=== PATIENT | female | born 1990 | race Caucasian/White ===

== ENCOUNTER 2020-12-18 16:38 | Outpatient (CLI) | payer OTHER, SELFPAY ==
[2020-12-18 17:02] VITALS: BP 147/93; PULSE 72
[2020-12-18 17:15] VITALS: BP 149/99; PULSE 76
[2020-12-18 17:25] LABS: Basophils Percent Auto 0.3 % (0.2-1.2); Eosinophils Absolute Auto 0.1 K/mm3 (0-0.3); Eosinophils Percent Auto 0.5 % (0-4.4); Hematocrit 31.7 % (37.0-47.0); Immature Granulocyte Absolute 0.06 K/mm3 (0.00-0.031); Immature Granulocyte Percent A 0.5 % (0-0.5); Lymphocytes Absolute Auto 2.09 K/mm3 (0.9-3.2); Lymphocytes Percent Auto 18.2 % (18.3-44.2); Mean Corpuscular HGB Conc 34.7 g/dl (32-36); Mean Corpuscular Hemoglobin 30.6 pg (26-34); Mean Corpuscular Volume 88.3 fl (80-100); Mean Platelet Volume 10.4 fl (7.4-10.4); Monocytes Absolute Auto 0.8 K/mm3 (0.1-0.6); Monocytes Percent Auto 6.6 % (2.6-8.5); Neutrophils Absolute Auto 8.5 K/mm3 (1.3-6.7); Neutrophils Percent Auto 73.9 % (45.5-73.1); Platelet Count Result 287 k/mm3 (150-375); Red Blood Count 3.59 M/mm3 (4.2-5.4); Red Cell Distribution Width 13.2 % (11.5-14.5); White Blood Count 11.5 K/mm3 (4.5-10.0)
[2020-12-18 17:26] LABS: Alanine Aminotransferase 18 U/L (4-35); Albumin Level 3.7 g/dL (3.5-5.1); Alkaline Phosphatase 173 U/L (38-126); Anion Gap 6 mmol/L (8-16); Aspartate Amino Transferase 25 U/L (14-36); Bilirubin,Total 0.3 mg/dL (0.2-1.3); Blood Urea Nitrogen 7 mg/dL (7-17); Calcium 9.8 mg/dL (8.4-10.2); Carbon Dioxide 22 mmol/L (22-30); Chloride 104 mmol/L (98-107); Estimated Glomerular Filt Rate > 60; Glucose 77 mg/dL (65-110); Potassium 3.4 mmol/L (3.4-5.0); Sodium 132 mmol/L (137-145); Uric Acid 4.6 mg/dL (2.5-7.5)
[2020-12-18 17:30] VITALS: BP 146/92; PULSE 67
[2020-12-18 17:30] LABS: Add Urine Microscopic? YES; Appearance Urine Cloudy (Clear); Bacteria Urine Trace /hpf; Bilirubin Urine Negative (Negative); Blood Urine Negative (Negative); Color Urine Yellow (Yellow); Glucose Urine UA Negative (Negative); Ketones Urine Negative (Negative); Leukocyte Esterase Ur Negative LEU/UL (NEGATIVE); Mucus Urine Rare /lpf; Nitrate Urine Negative (Negative); Protein Urine Negative (Negative); RBC Urine 0-2 /hpf (0-2); Squamous Epithelial Cell Urine Occasional /hpf (Few); Urobilinogen Urine Negative mg/dL (<2.0)
[2020-12-18 17:34] LABS: Total Protein Urine Random 19 mg/dL; Ur Ttl Prot Creatinine Ratio 0.33 mg/mg (0-0.20)
[2020-12-18 17:45] VITALS: BP 146/89; PULSE 73
[2020-12-18 17:48] VITALS: BP 146/89; PULSE 67
== END 2020-12-18 17:50 | disposition home or self-care (01) ==
LOC: ANHOBOP 16:44 → ANHOBPP 16:45
PROVIDERS: Visit Provider Obstetrics & Gynecology
DX: O13.9 Gestational [pregnancy-induced] hypertension without significant proteinuria, unspecified trimester (principal); Z3A.00 Weeks of gestation of pregnancy not specified
CPT/HCPCS: 36415; 59025; 80053; 81001; 82570; 84156; 84550; 85025; 87086; 99199

== ENCOUNTER 2020-12-30 14:05 | Inpatient (IN) | payer OTHER, SELFPAY ==
[2020-12-30] VITALS (48 sets, daily range): BP systolic 112–162; BP diastolic 62–126; PULSE 60–99; TEMP 36.4–36.7; O2SAT 98–100; BMI 27.8
--- NOTE | 2020-12-30 14:05 | LDADM ---
This patient, Marcy Rivera, was admitted to Labor/Delivery/Recovery 105 on 12/30/20 at 14:05. Plans for labor, pain management and were discussed with patient. Patient/family oriented to hospital policies and general routines including ID bracelet, bed and alarms, visiting hours, pain management, procedures, bathroom and other care routines, personal items, smoking policy, room service/diet and guest tray routines, infant security routines, and visiting hours. Patient/Family are encouraged to report perceived risks to care and to ask questions if they do not understand what they are told or what they should do. See OBIX for further documentation.
--- NOTE | 2020-12-30 14:25 | PC.NURSE ---
Notified Dr. Bejarano of patient arrival to OB unit with complaint of leaking clear fluid since 12/30/2020 0430. ROM plus was collected and positive for ROM. SVE 3-/-2. FHT reactive. Patient denies contractions. Admission order received.
--- NOTE | 2020-12-30 14:37 | PC.NURSE ---
Dr. Bejarano notified of elevated BP's upon admission. Orders received.
[2020-12-30 15:11] LABS: Basophils Absolute Auto 0.1 K/mm3 (0.0-0.1); Basophils Percent Auto 0.4 % (0.2-1.2); Eosinophils Absolute Auto 0.1 K/mm3 (0-0.3); Eosinophils Percent Auto 0.5 % (0-4.4); Hematocrit 36.8 % (37.0-47.0); Hemoglobin 12.5 g/dL (12.0-15.0); Immature Granulocyte Absolute 0.06 K/mm3 (0.00-0.031); Immature Granulocyte Percent A 0.5 % (0-0.5); Lymphocytes Absolute Auto 1.86 K/mm3 (0.9-3.2); Lymphocytes Percent Auto 14.4 % (18.3-44.2); Mean Corpuscular Hemoglobin 30.6 pg (26-34); Mean Corpuscular Volume 90.2 fl (80-100); Mean Platelet Volume 10.6 fl (7.4-10.4); Monocytes Absolute Auto 0.7 K/mm3 (0.1-0.6); Neutrophils Absolute Auto 10.3 K/mm3 (1.3-6.7); Neutrophils Percent Auto 79.2 % (45.5-73.1); Platelet Count Result 285 k/mm3 (150-375); Red Blood Count 4.08 M/mm3 (4.2-5.4); Red Cell Distribution Width 13.5 % (11.5-14.5)
[2020-12-30] MEDS: LACTATED RINGERS 1,000 ML 125 ML IV CONT ×2 (15:11→16:23)
[2020-12-30] MEDS: OXYTOCIN 30 UNITS/NS 500 ML 30 UNITS/500 ML BAG 6 UNITS IV CONT (15:12)
[2020-12-30 15:25] LABS: Alanine Aminotransferase 20 U/L (4-35); Albumin Level 4.2 g/dL (3.5-5.1); Alkaline Phosphatase 207 U/L (38-126); Anion Gap 7 mmol/L (8-16); Aspartate Amino Transferase 27 U/L (14-36); Bilirubin,Total 0.5 mg/dL (0.2-1.3); Blood Urea Nitrogen 6 mg/dL (7-17); Carbon Dioxide 25 mmol/L (22-30); Chloride 105 mmol/L (98-107); Estimated Glomerular Filt Rate > 60; Glucose 80 mg/dL (65-110); Potassium 3.6 mmol/L (3.4-5.0); Sodium 137 mmol/L (137-145)
--- NOTE | 2020-12-30 16:28 | WPDANESEPP ---
Anes - Eval Pre Procedure Procedure: Labor Epidural Date/Time: 12/30/20 16:28 Surgeon: Dr Mora Preop Diagnosis: Labor Pain Pre Op Diagnosis: Leaking Patient Data Age: 30 Gender: F Height: 1.65 m Weight: 76 kg Last Vital Signs Temp 36.6 C 12/30/20 14:15 Pulse 81 12/30/20 16:25 BP 150/77 H 12/30/20 16:25 Pulse Ox 100 12/30/20 16:24 Allergies Allergy/AdvReac Type Severity Reaction Status Date / Time No Known Allergies Allergy Verified 12/30/20 15:26 Home Medications Medication Instructions Recorded Confirmed Type Vitamin 1 tablet PO DAILY 12/30/20 12/30/20 History Laboratory Tests 12/30/20 12/30/20 12/30/20 14:57 14:57 14:57 WBC 13.0 K/mm3 H K/mm3 (4.5-10.0) RBC 4.08 M/mm3 L M/mm3 (4.2-5.4) Hgb 12.5 g/dL g/dL (12.0-15.0) Hct 36.8 % L % (37.0-47.0) MCV 90.2 fl fl (80-100) MCH 30.6 pg pg (26-34) MCHC 34.0 g/dl g/dl (32-36) RDW 13.5 % % (11.5-14.5) Plt Count 285 k/mm3 k/mm3 (150-375) MPV 10.6 fl H fl (7.4-10.4) Immature Gran % (Auto) 0.5 % % (0-0.5) Neut % (Auto) 79.2 % H % (45.5-73.1) Lymph % (Auto) 14.4 % L % (18.3-44.2) [place] % (Auto) 5.0 % % (2.6-8.5) Eos % (Auto) 0.5 % % (0-4.4) Baso % (Auto) 0.4 % % (0.2-1.2) Lymph # (Auto) 1.86 K/mm3 K/mm3 (0.9-3.2) [place] # (Auto) 0.7 K/mm3 H K/mm3 (0.1-0.6) Eos # (Auto) 0.1 K/mm3 K/mm3 (0-0.3) Baso # (Auto) 0.1 K/mm3 K/mm3 (0.0-0.1) Abs Immat Gran (auto) 0.06 K/mm3 H K/mm3 (0.00-0.031) Absolute Neuts (auto) 10.3 K/mm3 H K/mm3 (1.3-6.7) Absolute Nucleated RBC 0.0 K/mm3 K/mm3 (0.0-0.012) Nucleated RBC % 0.0 % % (0.0-0.2) Sodium 137 mmol/L mmol/L (137-145) Potassium 3.6 mmol/L mmol/L (3.4-5.0) Chloride 105 mmol/L mmol/L (98-107) Carbon Dioxide 25 mmol/L mmol/L (22-30) Anion Gap 7 mmol/L L mmol/L (8-16) BUN 6 mg/dL L mg/dL (7-17) Creatinine 0.60 mg/dL L mg/dL (0.7-1.0) Estim Creat Clear Calc Not Reportable Estimated GFR > 60 (59 - ) Glucose 80 mg/dL mg/dL (65-110) Calcium 10.0 mg/dL mg/dL (8.4-10.2) Total Bilirubin 0.5 mg/dL mg/dL (0.2-1.3) AST 27 U/L U/L (14-36) ALT 20 U/L U/L (4-35) Alkaline Phosphatase 207 U/L H U/L (38-126) Total Protein 8.0 g/dL g/dL (6.3-8.2) Albumin 4.2 g/dL g/dL (3.5-5.1) RPR Pending : gestational age ([place] 12/30/20) Patient hx anesthesia problems: none Family hx anesthesia problems: none PMFSH Family History Family History Grandparent Prostate carcinoma Diabetes mellitus Hypertension Mother Hypertension Emphysema lung Father Hypertension Social History Social History Smoking status: Former smoker Substance use: never Spiritual care concerns: No Exam Day of Procedure 12/30/20 16:28 Patient weight: normal Heart: regular rate and rhythm Lungs: normal air movement Airway: Mallampati scale class II Neurological: alert and oriented
--- NOTE | 2020-12-30 16:36 | PM.IMHP ---
H&P: HPI History of Present Illness Date/Time: 12/30/20 16:36 Chief Complaint: ruptured membrane at term Review of Systems Review of Systems: All systems reviewed & are unremarkable except as noted in HPI and below PMFSH Family History Family History Grandparent Prostate carcinoma Diabetes mellitus Hypertension Mother Hypertension Emphysema lung Father Hypertension Social History Social History Smoking status: Former smoker Substance use: never Spiritual care concerns: No Meds Home Medications and Allergies Home Medications Medication Instructions Recorded Confirmed Type Vitamin 1 tablet PO DAILY 12/30/20 12/30/20 History Allergies Allergy/AdvReac Type Severity Reaction Status Date / Time No Known Allergies Allergy Verified 12/30/20 15:26 Vital Signs Vital Signs - 24 hr 12/30/20 14:15 12/30/20 14:21 12/30/20 14:31 Temperature 97.9 F Pulse Rate 74 73 69 Blood Pressure 162/92 H 150/94 H 141/80 H Pulse Oximetry 12/30/20 14:46 12/30/20 15:01 12/30/20 15:31 Temperature Pulse Rate 76 66 60 Blood Pressure 148/85 H 138/85 149/83 H Pulse Oximetry 12/30/20 16:08 12/30/20 16:09 12/30/20 16:14 Temperature Pulse Rate 85 Blood Pressure 148/95 H Pulse Oximetry 100 99 12/30/20 16:17 12/30/20 16:19 12/30/20 16:20 Temperature Pulse Rate 80 89 Blood Pressure 155/85 H 160/86 H Pulse Oximetry 99 12/30/20 16:23 12/30/20 16:24 12/30/20 16:25 Temperature Pulse Rate 76 75 81 Blood Pressure 155/109 H 148/87 H 150/77 H Pulse Oximetry 100 12/30/20 16:28 12/30/20 16:29 12/30/20 16:30 Temperature Pulse Rate 84 65 Blood Pressure 149/82 H 153/73 H Pulse Oximetry 100 12/30/20 16:34 Temperature Pulse Rate 69 Blood Pressure 151/77 H Pulse Oximetry 100 Exam Const: General: no acute distress Eyes: General: appearance normal, both eyes and all related structures Neck: Neck: supple and no JVD Thyroid: thyroid normal Resp: Effort & Inspection: normal respiratory effort Auscultation: clear to auscultation bilaterally Cardio: Rate: regular rate Rhythm: regular rhythm GI: Inspection: non-distended GI Palp: Yes Soft to palpation, No Tenderness to palpation present (GI) and No Guarding due to palpation present (GI) Auscultation: normal bowel sounds : External Female Exam: normal external appearance Speculum Exam - Vagina: normal appearance of the vagina Speculum Exam - Cervix: normal appearance of the cervix (Cervix is 3.5 /80% per RN exam. FHTs reassuring) Skin: General skin exam: no rashes or lesions noted Extrem: General: normal to inspection and no edema Psych: Mental Status: mental status grossly normal Affect: normal affect H&P: Results Labs Labs: Short CBC 12/30/20 Range/Units 14:57 WBC 13.0 H (4.5-10.0) K/mm3 Hgb 12.5 (12.0-15.0) g/dL Hct 36.8 L (37.0-47.0) % Plt Count 285 (150-375) k/mm3 BMP 12/30/20 14:57 Sodium 137 Potassium 3.6 Chloride 105 Carbon Dioxide 25 BUN 6 L Creatinine 0.60 L Glucose 80 Calcium 10.0 Liver Function 12/30/20 Range/Units 14:57 Total Bilirubin 0.5 (0.2-1.3) mg/dL AST 27 (14-36) U/L ALT 20 (4-35) U/L Alkaline Phosphatase 207 H (38-126) U/L Albumin 4.2 (3.5-5.1) g/dL Assessment and Plan Additional Plan impression: Term in active labor plan Plan: Pit was initiated. Epidural is in and working. Spontaneous vaginal delivery is expected
[2020-12-30 17:21] LABS: Uric Acid 4.8 mg/dL (2.5-7.5)
[2020-12-30 17:28] LABS: Amphetamine Screen Urine Negative (Negative); Barbiturate Screen Urine Negative (Negative); Benzodiazepines Screen Urine Negative (Negative); Cannabinoid Screen Urine Positive (Negative); Cocaine Screen Urine Negative (Negative); Methadone Screen Urine Negative (Negative); Opiate Screen Urine Negative (Negative); Phencyclidine Screen Urine Negative (Negative)
[2020-12-30] MEDS: AMPICILLIN 2 GM/NS 100 ML 2 GM/100 ML BAG IVPB (22:31)
[2020-12-31] VITALS (9 sets, daily range): BP systolic 130–154; BP diastolic 58–92; PULSE 64–105; RESP 12–16; TEMP 36.2–36.7; O2SAT 98–100
--- NOTE | 2020-12-31 00:05 | PM.OBPRVD ---
OB - Delivery Note Procedure Delivery date: 12/30/20 events: Prolonged Rupture of Membrane Intrapartal events: None Induction method: none Delivery augmentation: pitocin Delivery monitor: external FHT Route of delivery: Episiotomy description: None Laceration Description: None Specimen: No Quantitative Blood Loss (ml): 58 Anesthesia type: Epidural Disposition: floor Baby Date of : 12/30/20 Time of : 23:53 Weeks of gestation at delivery: 40 Infant gender: Male Weight (pounds): 7 Weight (ounces): 12 presentation: vertex position: Right Occiput Anterior Placenta delivery description: Spontaneous cord vessel description: 3 Vessels and Clamped/Cut score one minute: 9 score five minutes: 9 Narrative: amp x 1 prolonged rom
[2020-12-31] MEDS: OXYTOCIN 30 UNITS/NS 500 ML 30 UNITS/500 ML BAG 125 UNITS IV CONT (00:25)
[2020-12-31] MEDS: IBUPROFEN 600 MG TABLET PO ×3 (00:26→17:19)
[2020-12-31] MEDS: MULTIVIT/MIN/PREN/FOL AC/IRON TABLET 1 TAB PO (07:34)
[2020-12-31] MEDS: DOCUSATE SODIUM 100 MG CAPSULE PO ×2 (07:35→17:19)
--- NOTE | 2020-12-31 08:09 | PM.OBPNVD ---
OB - PN: Subj Subjective Date/time seen: 12/31/20 08:09 Patient comments: no complaints and pain well controlled baby status: doing well and nursing well OB - PN: Obj Data Labs CBC & Chem 7: 12/30/20 14:57 12/30/20 14:57 Labs: Laboratory Results - last 24 hr 12/30/20 12/30/20 12/30/20 14:57 14:57 14:57 WBC 13.0 H RBC 4.08 L Hgb 12.5 Hct 36.8 L MCV 90.2 MCH 30.6 MCHC 34.0 RDW 13.5 Plt Count 285 MPV 10.6 H Immature Gran % (Auto) 0.5 Neut % (Auto) 79.2 H Lymph % (Auto) 14.4 L [place] % (Auto) 5.0 Eos % (Auto) 0.5 Baso % (Auto) 0.4 Lymph # (Auto) 1.86 [place] # (Auto) 0.7 H Eos # (Auto) 0.1 Baso # (Auto) 0.1 Abs Immat Gran (auto) 0.06 H Absolute Neuts (auto) 10.3 H Absolute Nucleated RBC 0.0 Nucleated RBC % 0.0 Sodium Potassium Chloride Carbon Dioxide Anion Gap BUN Creatinine Estim Creat Clear Calc Estimated GFR Glucose Uric Acid 4.8 Calcium Total Bilirubin AST ALT Alkaline Phosphatase Total Protein Albumin Urine Opiates Screen Urine Methadone Screen Ur Barbiturates Screen Ur Phencyclidine Scrn Ur Amphetamine Screen U Benzodiazepines Scrn Urine Cocaine Screen U Cannabinoids Screen Blood Type B Positive Antibody Screen Negative 12/30/20 12/30/20 14:57 16:37 WBC RBC Hgb Hct MCV MCH MCHC RDW Plt Count MPV Immature Gran % (Auto) Neut % (Auto) Lymph % (Auto) [place] % (Auto) Eos % (Auto) Baso % (Auto) Lymph # (Auto) [place] # (Auto) Eos # (Auto) Baso # (Auto) Abs Immat Gran (auto) Absolute Neuts (auto) Absolute Nucleated RBC Nucleated RBC % Sodium 137 Potassium 3.6 Chloride 105 Carbon Dioxide 25 Anion Gap 7 L BUN 6 L Creatinine 0.60 L Estim Creat Clear Calc Not Reportable Estimated GFR > 60 Glucose 80 Uric Acid Calcium 10.0 Total Bilirubin 0.5 AST 27 ALT 20 Alkaline Phosphatase 207 H Total Protein 8.0 Albumin 4.2 Urine Opiates Screen Negative Urine Methadone Screen Negative Ur Barbiturates Screen Negative Ur Phencyclidine Scrn Negative Ur Amphetamine Screen Negative U Benzodiazepines Scrn Negative Urine Cocaine Screen Negative U Cannabinoids Screen Positive A Blood Type Antibody Screen OB - PN A/P Plan day: 1 Plan: routine care Time Spent With Patient Time: Total time spent is greater than 50% in coordination of care (as documented) at patient's floor/unit and/or counseling patient: Time with patient: less than 15 minutes Review of Systems Review of Systems: All systems reviewed & are unremarkable except as noted in HPI and below Exam Const: General: no acute distress Eyes: General: appearance normal, both eyes and all related structures Neck: Neck: supple and no JVD Thyroid: thyroid normal Resp: Effort & Inspection: normal respiratory effort Auscultation: clear to auscultation bilaterally Cardio: Rate: regular rate Rhythm: regular rhythm GI: Inspection: non-distended GI Palp: Yes Soft to palpation, No Tenderness to palpation present (GI) and No Guarding due to palpation present (GI) Auscultation: normal bowel sounds : General: Yes bladder normal to palpation External Female Exam: normal external appearance Speculum Exam - Vagina: normal vaginal discharge and No vaginal bleeding Speculum Exam - Cervix: nontender Bimanual exam- vagina & uterus: bladder normal to palpation and No Cervical tenderness present OB/external & speculum: No vaginal bleeding Skin: General skin exam: no rashes or lesions noted Extrem: General: normal to inspection and no edema Psych: Mental Status: mental status grossly normal Affect: normal affect
--- NOTE | 2020-12-31 10:15 | PCCCNOTE ---
Care Coordination. Patient referred to Care Coordination for positive UDS for marijuana. Baby was not tested. Spoke with pt. and spouse at bedside. Mother reports occasionally uses and denies any substance addictions or resource information needed surrounding use. Pt. reports had big shower and has all necessary baby care items. She denies WIC or other resource information needs. Mother very interested in continuing to breast feed and RN aware. Spoke with Leah Gabriel at [facility] Hotline who took patient's situation as information only intake ID#[id number].
[2020-12-31] MEDS: DIBUCAINE 1% OINTMENT 30 GM TUBE 1 APPLIC TOPICAL (20:11)
[2021-01-01 00:01] VITALS: BP 129/89; PULSE 73; RESP 16; TEMP 37
[2021-01-01] MEDS: IBUPROFEN 600 MG TABLET PO ×2 (00:13→07:46)
--- NOTE | 2021-01-01 01:18 | PC.NURSE ---
01/01/2021 @ 2100 Patient viewed the discharge video Mother & Baby Care, The First Two Weeks . Patient was given the opportunity and encouraged to ask questions. Patient verbalized understanding of information shared and has been given the mother/baby guide for home reference.
[2021-01-01 05:00] VITALS: BP 147/88; PULSE 66; RESP 16; TEMP 36.4; O2SAT 98
[2021-01-01 05:26] LABS: Hematocrit 31.5 % (37.0-47.0); Hemoglobin 10.7 g/dL (12.0-15.0)
[2021-01-01] MEDS: DOCUSATE SODIUM 100 MG CAPSULE PO (07:47)
[2021-01-01] MEDS: MULTIVIT/MIN/PREN/FOL AC/IRON TABLET 1 TAB PO (07:47)
--- NOTE | 2021-01-01 08:00 | PC.NURSE ---
Mother called out for assist with feeding, reporting tenderness with feeding more on right than left. . is able to freely thrust tongue past gum ridge and flange both lips. Skin is intact on both nipples, redness and slight bruising noted more on right than left. Reviewed infant feeding cues, frequencies, duration of feedings, feeding elimination flow sheet, and signs of adequate intake. Demonstrated stimulation techniques to wake for feeding. Assisted with to breast. Reviewed positioning/alignment in football, holding breast in ?C? hold and guided asymmetrical latch on. Discussed rational for each. Mother reports she has not been holding breast during entire feeding. able to latch correctly within a few attempts. Reviewed signs of a correct latch, effective nursing and suck swallow ratio. Infant nursed eagerly, with steady draws and frequent swallowing noted. Reviewed the difference of effective vs ineffective nursing. Suggested mother stimulate while feeding to increase stimulation, increase intake and to assist with maintaining deep latch. would slip to shallow latch, mother reports tenderness. Demonstrated how to adjust latch more deeply while feeding. Mother reports she can feel change in latch and has no tenderness. Nipple care reviewed of lanolin after feedings, warm compresses as needed. Mother is planning discharge today. Mother is able to independently latch infant with appropriate positioning/alignment. She is feeding as required and waking infant to feed if needed. Infant has had at least 8 effective feedings in the past 24 hours, and is currently meeting outcomes for weight, output, jaundice and feeding frequencies. Mother states she feels confident to continue effective at home. Reviewed transition to breast milk, signs of adequate intake, and engorgement/relief. Instructed to call ICP if intake/output less than required. Reviewed regular medications mother is taking. Information provided per Camilla. Reviewed community resources on the [facility] website and in the Mom/Baby guide. Information on outpatient services provided. Mother has no further questions at this time.
[2021-01-01 08:30] VITALS: BP 138/91; PULSE 64; RESP 16; TEMP 36.4; O2SAT 96; BMI 25.4
--- NOTE | 2021-01-01 08:58 | PM.OBPNVD ---
OB - PN: Subj Subjective Date/time seen: 01/01/21 08:58 Narrative: Pain OK. Would like to go home. OB - PN: Obj Data Labs CBC & Chem 7: 01/01/21 05:11 12/30/20 14:57 Labs: Laboratory Results - last 24 hr 01/01/21 05:11 Hgb 10.7 L Hct 31.5 L OB - PN A/P Plan Comments: A: PPD#2, doing well. P: Home to f/u 6 weeks. Exam Psych: Other: AVSS ABD soft, nontender, fundus firm EXT nontender
--- NOTE | 2021-01-01 08:59 | P.DS_ITS ---
DS: Admitting Diagnosis Admitting Diagnosis IUP at 40 weeks SROM DS: Discharge Diagnosis Discharge Diagnosis (1) (normal spontaneous vaginal delivery): Code(s): O80 - Encounter for full-term uncomplicated delivery Status: Acute OB - DS: Summary OB Procedures : None OB Procedures Intrapartum: Spontaneous Vag Delivery OB Procedures: : None DS: Data Data Completed and Pending Labs on day of discharge: Labs from last 24 hours 01/01/21 05:11 Hgb 10.7 L Hct 31.5 L Discharge Plan Discharge Attending physician on discharge: Ramirez Mora Discharging Clinician: Ramirez Mora Patient Disposition: Home, Self-Care Activity: pelvic rest Diet: regular Discharge Instructions: Call or return if temperature above 100.4? F, increased abdominal pain, increased vaginal bleeding or any new problems. Patient Instructions: Antibiotic Form Stand Alone Forms: General Discharge Information Follow-up/Referrals: Ramirez Mora MD [Physician] - 6 Weeks Discharge Medications: New ibuprofen 600 mg tablet 600 mg PO Q6H PRN (Reason: cramps) Qty: 30 RF: 0 No Action Vitamin 1 tablet PO DAILY RF: 0 Date of admission: 12/30/20 14:05 Primary Care Provider: PHYSICIAN,FINAL ASSEMBLY WORKER Admitting Provider: Ramirez Mora Attending physician on admission: Ramirez Mora Condition: Stable
--- NOTE | 2021-01-01 12:44 | PC.NURSE ---
No AH follow-up scheduled since patient will be seeing fuel handler tomorrow (01/02/21) at 9:30 a.m. in [place], [place]. Per Dr. Mora, patient can call and stop in office sometime this week for a BP check.
[2021-01-04 09:19] LABS: Rapid Plasma Reagin Non-Reactive (NonReactive)
== END 2021-01-01 13:20 | disposition home or self-care (01) | DRG 807 ==
LOC: ANHLDR 14:39 → ANHOB2 12-31 02:33
PROVIDERS: Admitting Provider Obstetrics & Gynecology; Visit Provider Obstetrics & Gynecology
DX: O76 Abnormality in fetal heart rate and rhythm complicating labor and delivery (principal); Z37.0 Single live birth; O42.92 Full-term premature rupture of membranes, unspecified as to length of time between rupture and onset of labor; O13.4 Gestational [pregnancy-induced] hypertension without significant proteinuria, complicating childbirth; Z3A.40 40 weeks gestation of pregnancy
CPT/HCPCS: 36415; 80053; 80307; 84112; 84550; 85014; 85018; 85025; 86592; 86850; 86900; 86901; A9270; J0290; J2590; J2795; J7120

== ENCOUNTER 2023-04-29 16:32 | Outpatient (CLI) | payer OTHER, SELFPAY ==
[2023-04-29 17:00] VITALS: BP 152/103; PULSE 94
[2023-04-29 17:15] VITALS: BP 139/87; PULSE 117
[2023-04-29 17:18] LABS: Basophils Percent Auto 0.2 % (0.2-1.2); Eosinophils Absolute Auto 0.1 K/mm3 (0-0.3); Eosinophils Percent Auto 0.5 % (0-4.4); Hematocrit 33.1 % (37.0-47.0); Hemoglobin 10.9 g/dL (12.0-15.0); Immature Granulocyte Percent A 0.8 % (0-0.5); Lymphocytes Absolute Auto 2.22 K/mm3 (0.9-3.2); Lymphocytes Percent Auto 17.8 % (18.3-44.2); Mean Corpuscular HGB Conc 32.9 g/dl (32-36); Mean Corpuscular Hemoglobin 29.6 pg (26-34); Mean Corpuscular Volume 89.9 fl (80-100); Mean Platelet Volume 9.9 fl (7.4-10.4); Monocytes Absolute Auto 0.8 K/mm3 (0.1-0.6); Monocytes Percent Auto 6.2 % (2.6-8.5); Neutrophils Absolute Auto 9.3 K/mm3 (1.3-6.7); Neutrophils Percent Auto 74.5 % (45.5-73.1); Platelet Count Result 290 k/mm3 (150-375); Red Blood Count 3.68 M/mm3 (4.2-5.4); Red Cell Distribution Width 13.2 % (11.5-14.5); White Blood Count 12.5 K/mm3 (4.5-10.0)
[2023-04-29 17:19] LABS: Appearance Urine Clear (Clear); Bilirubin Urine Negative (Negative); Blood Urine Negative (Negative); Color Urine Yellow (Yellow); Glucose Urine UA Negative (Negative); Ketones Urine 1+ mg/dL (Negative); Leukocyte Esterase Ur Negative LEU/UL (NEGATIVE); Nitrate Urine Negative (Negative); Protein Urine Negative (Negative); Specific Grav Ur 1.002 (1.001-1.035); Urobilinogen Urine 0.2 mg/dL (<2.0); pH Urine 6.5 (5.0-9.0)
[2023-04-29 17:30] VITALS: BP 158/89; PULSE 116
[2023-04-29 17:30] LABS: Creatinine Urine 18.4 mg/dL; Total Protein Urine Random 14 mg/dL; Ur Ttl Prot Creatinine Ratio 0.76 mg/mg (0-0.20)
[2023-04-29 17:31] LABS: Alanine Aminotransferase 20 U/L (6-35); Albumin Level 3.8 g/dL (3.5-5.1); Alkaline Phosphatase 136 U/L (38-126); Anion Gap 9 mmol/L (8-16); Aspartate Amino Transferase 30 U/L (14-36); Bilirubin,Total 0.5 mg/dL (0.2-1.3); Blood Urea Nitrogen 8 mg/dL (7-17); Calcium 9.4 mg/dL (8.4-10.2); Carbon Dioxide 20 mmol/L (22-30); Chloride 105 mmol/L (98-107); Estimated Glomerular Filt Rate > 60; Glucose 76 mg/dL (65-110); Potassium 3.8 mmol/L (3.4-5.0); Sodium 134 mmol/L (137-145); Uric Acid 4.9 mg/dL (2.5-7.5)
[2023-04-29 17:38] LABS: Add Urine Microscopic? NO
[2023-04-29 17:45] VITALS: BP 147/86; PULSE 117
[2023-04-29 18:09] VITALS: BP 147/86; PULSE 90
== END 2023-04-29 18:46 | disposition home or self-care (01) ==
LOC: ANHOBOP 16:39 → ANHOBPP 16:42
PROVIDERS: Visit Provider Obstetrics & Gynecology
DX: O13.9 Gestational [pregnancy-induced] hypertension without significant proteinuria, unspecified trimester (principal); Z3A.00 Weeks of gestation of pregnancy not specified
CPT/HCPCS: 36415; 59025; 80053; 81003; 82570; 84156; 84550; 85025; 87086; 99199

== ENCOUNTER 2023-05-01 08:52 | Outpatient (NON) | payer OTHER, SELFPAY ==
[2023-05-01 09:16] VITALS: BMI 28.8
[2023-05-01 09:47] LABS: Collection Time Urine 24 HOURS
[2023-05-01 09:49] LABS: Specific Gravity Ur 1.001; Total Volume 24 Hour Urine 2700 ml
[2023-05-01 09:56] LABS: Creatinine Urine 10.3 mg/dL; Patient Weight 173 Lbs
[2023-05-01 13:01] LABS: Total Protein Urine 24 Hr 135 mg/24hr (0-149); Total Protein Urine Random < 5.0 mg/dL (0.0-11.9)
== END 2023-05-01 08:53 | disposition home or self-care (01) ==
LOC: ANHOBOP 09:05
PROVIDERS: Visit Provider Obstetrics & Gynecology
DX: O13.9 Gestational [pregnancy-induced] hypertension without significant proteinuria, unspecified trimester (principal); Z3A.00 Weeks of gestation of pregnancy not specified
CPT/HCPCS: 81050; 82575; 84156

== ENCOUNTER 2023-05-19 05:02 | Inpatient (IN) | payer OTHER, SELFPAY ==
[2023-05-19] VITALS (138 sets, daily range): BP systolic 114–162; BP diastolic 65–117; PULSE 29–115; RESP 16–18; TEMP 36.6–36.8; O2SAT 79–100; BMI 29.3
--- NOTE | 2023-05-19 05:02 | LDADM ---
This patient, Marcy Rivera, was admitted to Labor/Delivery/Recovery 105 on 05/19/23 at 05:02. Plans for labor, pain management and were discussed with patient. Patient/family oriented to hospital policies and general routines including ID bracelet, bed and alarms, visiting hours, pain management, procedures, bathroom and other care routines, personal items, smoking policy, room service/diet and guest tray routines, infant security routines, and visiting hours. Patient/Family are encouraged to report perceived risks to care and to ask questions if they do not understand what they are told or what they should do. See OBIX for further documentation.
[2023-05-19 05:37] LABS: Basophils Percent Auto 0.2 % (0.2-1.2); Eosinophils Absolute Auto 0.1 K/mm3 (0-0.3); Eosinophils Percent Auto 1.1 % (0-4.4); Hemoglobin 11.3 g/dL (12.0-15.0); Immature Granulocyte Absolute 0.07 K/mm3 (0.00-0.031); Immature Granulocyte Percent A 0.7 % (0-0.5); Lymphocytes Absolute Auto 2.23 K/mm3 (0.9-3.2); Lymphocytes Percent Auto 21.3 % (18.3-44.2); Mean Corpuscular HGB Conc 33.2 g/dl (32-36); Mean Corpuscular Hemoglobin 29.3 pg (26-34); Mean Corpuscular Volume 88.1 fl (80-100); Monocytes Absolute Auto 0.6 K/mm3 (0.1-0.6); Monocytes Percent Auto 5.8 % (2.6-8.5); Neutrophils Absolute Auto 7.4 K/mm3 (1.3-6.7); Neutrophils Percent Auto 70.9 % (45.5-73.1); Platelet Count Result 303 k/mm3 (150-375); Red Blood Count 3.86 M/mm3 (4.2-5.4); Red Cell Distribution Width 13.2 % (11.5-14.5); White Blood Count 10.5 K/mm3 (4.5-10.0)
[2023-05-19] MEDS: LACTATED RINGERS 1,000 ML 125 ML IV CONT (05:40)
[2023-05-19] MEDS: OXYTOCIN 30 UNITS/NS 500 ML 30 UNITS/500 ML BAG IV CONT (05:40)
--- NOTE | 2023-05-19 08:58 | WPDOBADMIT ---
Obstetrics - Admit Note Admission Note: record reviewed. Additions to the history and/or subsequent changes in the physical findings follow. 32 y/o at 40 6/7 weeks gestation here for induction of labor. GBS neg. Good movement. AVSS NST reactive TOCO: contractions irregularly ABD soft, nontender, gravid, vertex EXT nontender Cervix 2/50/-2. AROM with clear fluid. Vertex. IUPC placed. A: IUP at term, here for scheduled induction of labor. P: Oxytocin. Anticipate .
--- NOTE | 2023-05-19 09:11 | WPDANESEPP ---
Anes - Eval Pre Procedure Procedure: labor epidural Date/Time: 05/19/23 09:11 Surgeon: vic Preop Diagnosis: pain during labor Pre Op Diagnosis: IOL Patient Data Age: 32 Gender: F Height: 1.65 m Weight: 80 kg Last Vital Signs Temp 36.6 C 05/19/23 05:20 Pulse 88 05/19/23 09:01 Resp 16 05/19/23 05:20 BP 149/84 H 05/19/23 09:01 O2 Del Method Room Air 05/19/23 05:18 Allergies Allergy/AdvReac Type Severity Reaction Status Date / Time No Known Allergies Allergy Verified 05/19/23 05:09 Home Medications Medication Instructions Recorded Confirmed Type Vitamin 1 tablet PO DAILY 12/30/20 05/19/23 History Laboratory Tests 05/19/23 05:28 WBC 10.5 H K/mm3 (4.5-10.0) RBC 3.86 L M/mm3 (4.2-5.4) Hgb 11.3 L g/dL (12.0-15.0) Hct 34.0 L % (37.0-47.0) MCV 88.1 fl (80-100) MCH 29.3 pg (26-34) MCHC 33.2 g/dl (32-36) RDW 13.2 % (11.5-14.5) Plt Count 303 k/mm3 (150-375) MPV 10.0 fl (7.4-10.4) Immature Gran % (Auto) 0.7 H % (0-0.5) Neut % (Auto) 70.9 % (45.5-73.1) Lymph % (Auto) 21.3 % (18.3-44.2) [place] % (Auto) 5.8 % (2.6-8.5) Eos % (Auto) 1.1 % (0-4.4) Baso % (Auto) 0.2 % (0.2-1.2) Lymph # (Auto) 2.23 K/mm3 (0.9-3.2) [place] # (Auto) 0.6 K/mm3 (0.1-0.6) Eos # (Auto) 0.1 K/mm3 (0-0.3) Baso # (Auto) 0.0 K/mm3 (0.0-0.1) Abs Immat Gran (auto) 0.07 H K/mm3 (0.00-0.031) Absolute Neuts (auto) 7.4 H K/mm3 (1.3-6.7) Absolute Nucleated RBC 0.0 K/mm3 (0.0-0.012) Nucleated RBC % 0.0 % (0.0-0.2) RPR Pending Blood Type B Positive Antibody Screen Negative Patient hx anesthesia problems: none Family hx anesthesia problems: none Results Review: All pre-operative results and documents have been reviewed as part of the pre-operative evaluation. [facility] Past Medical History Medical History (Updated 05/19/23 @ 09:11 by Brittany Pollack CRNA) Anxiety IUP (intrauterine ), incidental Family History Family History Grandparent Prostate carcinoma Diabetes mellitus Hypertension Mother Hypertension Emphysema lung Father Hypertension Social History Social History Smoking status: Former smoker Tobacco type: e-cigarettes/vaping Substance use: never Do You Feel Safe in your Home?: Yes Lack of Transportation: No Lack of Food: Never True Current Housing: I Have Housing Concerned About Future Housing: No Difficulty Paying Gas/Electric Bills: No Difficulty Paying for Meds: No Currently Unemployed: No Education: High School Diploma/GED Difficulty w/ Childcare or Family Care: No Spiritual care concerns: No Exam Day of Procedure 05/19/23 09:11
[2023-05-19] MEDS: LACTATED RINGERS 1,000 ML 999 ML IV CONT ×2 (10:28→13:10)
--- NOTE | 2023-05-19 11:54 | PM.OBPNLAB ---
Pain Control Date/time seen: 05/19/23 11:54 Comments: Comfortable with epidural. Pelvic Exam Dilation (cm): 4 Effacement (%): 80 station: -1 Contractions Contraction frequency: 3 Contraction pattern: Regular Status status: Category l Assessment and Plan Comments: Continue labor.
--- NOTE | 2023-05-19 12:02 | PC.NURSE ---
1140 -Introductions were made and mother shared her plan to breastfeed along with her successful experience with her first despite some challenges in the beginning. RN invited any questions?and concerns that the family has at this time, and they were answered and discussed.?Encouraged continuous [id number] until the first feeding if is stable. Education given to wait on the weight keeping infant [id number] to help reduce infant stress and improve success with latching by allowing infant time to explore parent's chest. Prepared parent that it can take 1-2 hours with uninterrupted [id number] to become familiar with their new surroundings. Education shared on how to protect the milk supply with latching infant, using hand expression to remove milk if doesn't latch in the first hour or there is separation.?Reviewed finger feeding (with clean hands)the first milk to preserve breast focus, encourage and to protect the milk supply if infant isn't latching the first hour. Demonstration and resources were given on how to hand express using the QR code in bonding and feeding trifold. We discussed any additional questions and concerns. Parents voiced understanding of information, reviewed consultation availability and to call if there is a request for assistance.
[2023-05-19 15:49] LABS: Rapid Plasma Reagin Non-Reactive (NonReactive)
--- NOTE | 2023-05-19 16:22 | PM.OBPRVD ---
OB - Vaginal Delivery Note Procedure Delivery date: 05/19/23 Induction method: Per Pitocin Protocol Delivery augmentation: Rupture of Membranes Delivery monitor: External FHT, External Uterine and Internal Uterine Route of delivery: Episiotomy description: None Laceration Description: None Specimen: Yes (cord blood) Quantitative Blood Loss (ml): 120 Anesthesia type: Epidural Disposition: PACU Complications: None Narrative: 32 y/o at 40 6/7 weeks gestation who presented to the hospital for induction of labor. Oxytocin was administered intravenously. Amniotomy was performed with return of clear fluid. She received an epidural for pain control. Her labor progressed and her cervix dilated completely. She pushed with good effort and delivered the 's head to the perineum. A loose nuchal cord was reduced. A shoulder dystocia was encountered. Fundal pressure and traction on the head were strictly avoided. Yazmin maneuver was employed. The posterior (left) shoulder was grasped and rotated clockwise. The anterior shoulder reduced and delivery was easily effected. The nose and mouth were bulb suctioned. After a delay, the cord was clamped and cut. The was handed off the field. Cord blood was collected. The placenta delivered spontaneously and was grossly normal in appearance. The usual 3 vessel cord was noted. There were no lacerations. Needle and instrument counts were correct. The patient was taken to recovery room in stable condition. The infant went to the nursery in stable condition. I was present and scrubbed for the entire delivery. Baby Date of : 05/19/23 Time of : 16:11 Weeks of gestation at delivery: 40 Infant gender: Female Weight (pounds): 7 Weight (ounces): 5 presentation: vertex position: Left Occiput Anterior Placenta delivery description: Spontaneous and Normal Configuration Cord Vessel Description: 3 Vessels and Nuchal Cord score one minute: 9 score five minutes: 9
[2023-05-19] MEDS: OXYTOCIN 30 UNITS/NS 500 ML 30 UNITS/500 ML BAG 125 UNITS IV CONT (16:30)
[2023-05-19] MEDS: BENZOCAINE 20% AER SPR (*SP) 56 GM CAN 1 SPRAY TOPICAL (18:38)
[2023-05-19] MEDS: WITCH HAZEL 40 PADS 1 PAD TOPICAL (18:38)
--- NOTE | 2023-05-19 19:10 | OBPPTRN ---
Patient transferred to post room #286 via w/c. Support person present. Oriented to unit, room, information board, rooming in, admission packet and security measures. Patient verbalizes understanding.
[2023-05-19] MEDS: IBUPROFEN 600 MG TABLET PO (19:45)
[2023-05-20] VITALS: BP 143/82; PULSE 88; RESP 18; TEMP 36.7
[2023-05-20] MEDS: ACETAMINOPHEN 325 MG TABLET 650 MG PO ×2 (00:10→09:27)
[2023-05-20] MEDS: IBUPROFEN 600 MG TABLET PO ×2 (04:05→12:32)
[2023-05-20 05:38] LABS: Hematocrit 30.4 % (37.0-47.0); Hemoglobin 10.2 g/dL (12.0-15.0)
--- NOTE | 2023-05-20 07:28 | WPDANLDPN2 ---
Anes-Prog Note L&D Date/Time: 05/20/23 07:28 Comfortable throughout: labor and delivery Neuraxial method: epidural Epidural/Spinal procedure site: clean & non-tender Neuro status: Neuro function grossly intact. Cardiovascular status: normal Respiratory status: normal Airway patency: baseline Mental status: baseline Post-Op hydration status: normal Vital Signs: Last Vital Signs Temp 36.7 C 05/20/23 00:00 Pulse 88 05/20/23 00:00 Resp 18 05/20/23 00:00 BP 143/82 H 05/20/23 00:00 Pulse Ox 96 05/19/23 16:34 O2 Del Method Room Air 05/19/23 19:40 Pain score (VAS): 05/21 I/O: Intake & Output 05/19/23 05/19/23 05/20/23 15:59 23:59 07:59 Intake Total 1999 450 Output Total 720 Balance 1999 - Post-procedural complaints: none Patient feedback: Patient satisfied with anesthetic care.
[2023-05-20 08:05] VITALS: BP 139/96; PULSE 89; RESP 16; TEMP 36.3; O2SAT 100
--- NOTE | 2023-05-20 08:57 | PM.OBPNVD ---
OB - PN: Subj Subjective Date/time seen: 05/20/23 08:57 Narrative: Pain OK. Would like to go home. OB - PN: Obj Data Labs 05/20/23 04:02 Labs: Laboratory Results - last 24 hr 05/19/23 05/20/23 05:28 04:02 Hgb 10.2 L Hct 30.4 L RPR Non-reactive OB - PN A/P Plan day: 1 Comments: A: PPD#1, doing well. P: Home to f/u 6 weeks. Exam Psych: Other: AVSS ABD soft, nontender, fundus firm EXT nontender
--- NOTE | 2023-05-20 09:03 | PM.OBDSVD ---
DS: Admitting Diagnosis Discharge Date 05/20/23 Admitting Diagnosis IUP at 40 6/7 weeks Favorable cervix DS: Discharge Diagnosis Discharge Diagnosis (1) (normal spontaneous vaginal delivery): Code(s): O80 - Encounter for full-term uncomplicated delivery Status: Acute OB - DS: Summary OB Procedures : None OB Procedures Intrapartum: Spontaneous Vag Delivery OB Procedures: : None Peripartum Data Laceration Description: None Episiotomy description: None Time Spent with Patient Time attestation: Total time spent providing and/or coordinating discharge services: DS: Data Data Completed and Pending Labs on day of discharge: Labs from last 24 hours 05/20/23 05/19/23 04:02 05:28 Hgb 10.2 L Hct 30.4 L RPR Non-reactive Discharge Plan Discharge Attending physician on discharge: Ramirez Mora Discharging Clinician: Ramirez Mora Patient Disposition: Home, Self-Care Activity: pelvic rest Diet: regular Discharge Instructions: Call or return if temperature above 100.4? F, increased abdominal pain, increased vaginal bleeding or any new problems. Stand Alone Forms: General Discharge Information Follow-up/Referrals: Ramirez Mora MD [Physician] - 6 Weeks Discharge Medications: New ibuprofen 600 mg tablet 600 mg PO Q6H PRN (Reason: cramps) Qty: 30 0RF Continued Vitamin 1 tablet PO DAILY Date of admission: 05/19/23 05:02 Primary Care Provider: PHYSICIAN,CAREER DEVELOPMENT ENGINEER Admitting Provider: Ramirez Mora Attending physician on admission: Ramirez Mora Condition: Stable
[2023-05-20] MEDS: MULTIVIT/MIN/PREN/FOL AC/IRON TABLET 1 TAB PO (09:10)
[2023-05-20] MEDS: DOCUSATE SODIUM 100 MG CAPSULE PO (09:10)
--- NOTE | 2023-05-20 12:04 | PC.NURSE ---
[id number] Reintroductions were made with LC RN's name written on the communication board. Primary RN's orientee Carey is doing VS on . Parents were encouraged to place S2S after assessment and call for assistance to practice different positions and on the left breast since mother states she is having difficulty on that side. Mother voiced understanding. Mother requested a consult due to both nipples have pinchy (purple lines down vertical on her nipples) injuries related to poor latching during the night. We reviewed the benefits of skin to skin (demonstrating unwrapping infant and placing upright on her chest), stimulating with massage touch, changing positions to encourage wakefulness, how to watch for early feeding cues, responsive feeding, feeding on demand (aiming for 8-12 times in 24 hours, about every 2-3 hours), milk production, building/maintaining a milk supply, duration of feeding, signs of adequate intake/output and how to record on the feeding sheet. Mother works well with her with encouragement and education. Reviewed positioning and ear, shoulder, hip alignment, supporting the breast to facilitate a deep latch, asymmetrical latch (off-center), leading with the chin with a big, open, wide gape and body close to mother. We practiced the football position on the left and the right. Education given to the mother of how to visualize the suckling (with good rocking jaw motion), swallows (dropping of the lower jaw) and how to listen for drinking at the breast (the ka sound) and infant demonstrated swallowing on the left breast using cross cradle and laid-back positioning on the right breast. was able to maintain latch without pain to mother protecting the nipple with optimal positioning, latching and supporting the deep latch. Reviewed comfort measures of healing with a warm, wet washcloth to rinse breast, then leave open to air-dry, good handwashing when or touching the breast/nipples to prevent infection. Mother voiced understanding of skin to skin, stimulating with massage touch, responsive feedings, encouraging if it has been 2 -2.5 hours since the start of the last , to call if infant does not wake up to breastfeed, or latch without pain. Resources used for education were facilitated with the visual educational handouts, mom and baby guide. Inpatient/outpatient resources provided with feeding sheet, name written on the communication board, and the mom/baby guide. Parents voiced understanding of information, demonstrated learning and will call if there is a request for assistance. Reported to the Primary RN.
[2023-05-20 12:48] VITALS: BP 155/96; PULSE 96; RESP 16; TEMP 36.8; O2SAT 98
== END 2023-05-20 18:30 | disposition home or self-care (01) | DRG 807 ==
LOC: ANHLDR 05:05 → ANHOB2 19:42
PROVIDERS: Admitting Provider Obstetrics & Gynecology; Visit Provider Obstetrics & Gynecology
DX: O69.81X0 Labor and delivery complicated by cord around neck, without compression, not applicable or unspecified (principal); Z37.0 Single live birth; Z3A.40 40 weeks gestation of pregnancy; O66.0 Obstructed labor due to shoulder dystocia
CPT/HCPCS: 36415; 85014; 85018; 85025; 86592; 86850; 86900; 86901; A9270; J2590; J2795; J7120